=== PATIENT | male | born 1935 | race Caucasian/White ===

== ENCOUNTER 2020-10-05 12:41 | Inpatient (IN) | payer OTHER ==
[2020-10-05] MEDS ORDERED: SODIUM CHLORIDE 0.9% 500 ML INFUS.BAG IV ONE (13:25)
[2020-10-05 14:30] LABS: BASO % 0.2 % (0-2.0); EOS % 0.3 % (0-4.5); HEMATOCRIT 36.1 % (35.4-49); HEMOGLOBIN 11.6 GM/dL (11.7-16.9); LYMPH % 8.7 % (8-40); MCH 28.4 pg (25.7-33.7); MCHC 32.1 g/dl (32.0-35.9); MEAN CELL VOLUME 88.6 fl (80-96); MEAN PLT VOLUME 9.2 fl (7.5-11.1); MONO % 5.8 % (3.8-10.2); PLATELET COUNT 345 10^3/uL (134-434); RBC 4.07 M/mm3 (4.00-5.60); RDW 14.7 % (11.9-15.9); WHITE BLOOD COUNT 18.3 K/mm3 (4.0-10.0)
[2020-10-05 14:40] LABS: INR 1.42 (0.83-1.09)
[2020-10-05 14:43] LABS: ACTIVATED PTT 27.1 SECONDS (25.2-36.5)
[2020-10-05 14:51] LABS: CHLORIDE 119 mmol/L (98-107); SODIUM 152 mmol/L (136-145)
[2020-10-05 14:53] LABS: CALCIUM 9.5 mg/dL (8.5-10.1)
[2020-10-05 14:54] LABS: ANION GAP 7 MMOL/L (8-16); BLOOD UREA NITROGEN 54.8 mg/dL (7-18); CO2 27 mmol/L (21-32); GLUCOSE,RANDOM 227 mg/dL (74-106)
[2020-10-05 14:57] LABS: CREATININE 1.8 mg/dL (0.55-1.3); SGOT/AST 23 U/L (15-37); SGPT/ALT 38 U/L (13-61)
[2020-10-05 14:58] LABS: BILIRUBIN,TOTAL 0.4 mg/dL (0.2-1); TOT PROT 6.8 g/dl (6.4-8.2)
[2020-10-05 14:59] LABS: ALK PHOS 102 U/L (45-117)
[2020-10-05] MEDS ORDERED: PIPERACILLIN/TAZOB 3.375 GM 3.375 GM in DEXTROSE 5%-WATER - 50 ML IVPB ONE (14:59)
[2020-10-05] MEDS ORDERED: VANCOMYCIN 1 GM in D5W (PRE-DOCKED) 1,000 MG/250 ML IVPB ONE (14:59)
[2020-10-05] MEDS ORDERED: SODIUM CHLORIDE 0.45% 1,000 ML IV SCH (15:00)
[2020-10-05 15:05] LABS: LACTIC ACID 3.7 mmol/L (0.4-2.0)
[2020-10-05] MEDS ORDERED: PIPERACILLIN/TAZOB 3.375 GM 3.375 GM/50 ML BAG IVPB ONE (15:18)
[2020-10-05] MEDS ORDERED: VANCOMYCIN 1 GRAM (PRE-DOCKED) 1,000 MG/250 ML BAG IVPB ONE (15:18)
[2020-10-05 15:35] LABS: EPI CELLS 23 /uL (0-25.1); HYALINE CASTS 8 /uL (0-3.1); URINE APPEARANCE CLOUDY; URINE BACTERIA 4 /uL (0-1359); URINE BILIRUBIN NEGATIVE (NEGATIVE); URINE COLOR YELLOW; URINE GLUCOSE (UA) NEGATIVE (NEGATIVE); URINE KETONE NEGATIVE (NEGATIVE); URINE LEUK ESTERASE NEGATIVE (NEGATIVE); URINE NITRITE NEGATIVE (NEGATIVE); URINE PROTEIN 1+ (NEGATIVE); URINE RBC 14 /uL (0-23.9); URINE WBC 16 /uL (0-25.8)
[2020-10-05] MEDS ORDERED: ACETAMINOPHEN 325 MG TABLET (FP) PO PRN (15:52)
[2020-10-05] MEDS ORDERED: POLYETHYLENE GLYCOL (HEALTHYLAX) 3350 17 GM PACKET PO PRN (15:52)
[2020-10-05] MEDS: SODIUM CHLORIDE 1,000 ML IV SCH (16:32)
[2020-10-05 20:02] LABS: LACTIC ACID 3.4 mmol/L (0.4-2.0)
[2020-10-05] MEDS ORDERED: ROSUVASTATIN CA 10 MG TABLET (FP) PO SCH (22:00)
[2020-10-05] MEDS ORDERED: traZODone HCL 50 MG TABLET (FP) PO SCH (22:00)
[2020-10-06 06:27] LABS: BASO % 0.8 % (0-2.0); EOS % 0.6 % (0-4.5); HEMATOCRIT 31.8 % (35.4-49); HEMOGLOBIN 10.3 GM/dL (11.7-16.9); LYMPH % 7.5 % (8-40); MCH 28.8 pg (25.7-33.7); MCHC 32.4 g/dl (32.0-35.9); MEAN CELL VOLUME 88.9 fl (80-96); MEAN PLT VOLUME 8.9 fl (7.5-11.1); NEUT % 85.1 % (42.8-82.8); PLATELET COUNT 275 10^3/uL (134-434); RBC 3.57 M/mm3 (4.00-5.60); RDW 14.6 % (11.9-15.9); WHITE BLOOD COUNT 16.9 K/mm3 (4.0-10.0)
[2020-10-06 06:55] LABS: CALCIUM 8.5 mg/dL (8.5-10.1)
[2020-10-06 06:56] LABS: ALBUMIN 1.7 g/dl (3.4-5.0); BLOOD UREA NITROGEN 46.6 mg/dL (7-18)
[2020-10-06 06:59] LABS: CREATININE 1.6 mg/dL (0.55-1.3)
[2020-10-06 07:01] LABS: BILIRUBIN,TOTAL 0.4 mg/dL (0.2-1); TOT PROT 5.6 g/dl (6.4-8.2)
[2020-10-06] MEDS: HEPARIN NA (PORCINE) 5,000 UNITS/ML 1ML VIAL SQ SCH ×3 (07:18→22:46)
[2020-10-06] MEDS: SODIUM CHLORIDE 1,000 ML IV SCH (09:18)
[2020-10-06] MEDS ORDERED: SERTRALINE HCL 25 MG TABLET (FP) PO SCH (10:00)
[2020-10-06] MEDS ORDERED: PANTOPRAZOLE 40 MG TABLET PO SCH (10:00)
[2020-10-06] MEDS ORDERED: DONEPEZIL HCL 5 MG TABLET (FP) PO SCH (10:00)
[2020-10-06] MEDS ORDERED: PIPERACILLIN/TAZOB 3.375 GM 3.375 GM in DEXTROSE 5%-WATER - 50 ML IVPB SCH (10:00)
[2020-10-06] MEDS ORDERED: VANCOMYCIN 1 GRAM (PRE-DOCKED) 1,000 MG/250 ML BAG IVPB SCH (10:00)
[2020-10-06] MEDS ORDERED: VANCOMYCIN 1 GRAM (PRE-DOCKED) 1,000 MG/250 ML BAG IVPB ONE (10:45)
[2020-10-06] MEDS ORDERED: HEPARIN NA (PORCINE) 5,000 UNITS/ML 1ML VIAL ONE (10:45)
[2020-10-06] MEDS ORDERED: PIPERACILLIN/TAZOB 3.375 GM 3.375 GM/50 ML BAG IVPB ONE ×2 (10:46→12:17)
[2020-10-06 11:35] LABS: URINE CRYSTALS MODERATE /hpf
[2020-10-06] MEDS ORDERED: LIDOCAINE HCL 2% (20ML MULTI-DOSE VIAL) ONE (16:30)
[2020-10-06] MEDS ORDERED: MIDAZOLAM HCL 2 MG/2 ML SINGLE DOSE VIAL ONE (16:35)
[2020-10-06] MEDS ORDERED: LIDOCAINE HCL 2% (50ML VIAL) INF ONE ×2 (16:39)
[2020-10-06] MEDS ORDERED: PROPOFOL 20 ML ONE (16:44)
[2020-10-06] MEDS ORDERED: BACITRACIN 50,000 UNITS VIAL TP ONE (16:50)
[2020-10-06] MEDS ORDERED: oxyCODONE HCL 5 MG TABLET PO PRN (17:39)
[2020-10-06] MEDS ORDERED: SODIUM CHLORIDE 1,000 ML IV SCH (17:58)
[2020-10-06] MEDS ORDERED: POLYETHYLENE GLYCOL (HEALTHYLAX) 3350 17 GM PACKET PO PRN (17:58)
[2020-10-06] MEDS ORDERED: ACETAMINOPHEN 325 MG TABLET (FP) PO PRN (17:58)
[2020-10-06] MEDS: PIPERACILLIN/TAZOB 3.375 GM 3.375 GM in DEXTROSE 5%-WATER - 50 ML IVPB SCH (18:25)
[2020-10-06] MEDS: traZODone HCL 50 MG TABLET (FP) PO SCH (22:47)
[2020-10-06] MEDS: ROSUVASTATIN CA 10 MG TABLET (FP) PO SCH (22:47)
[2020-10-07] MEDS ORDERED: DEXTROSE 5%-WATER - 50 ML IVPB ONE ×3 (01:37→18:50)
[2020-10-07] MEDS ORDERED: PIPERACILLIN/TAZOBACTAM 3.375 GM VIAL IVPB ONE ×3 (01:37→18:50)
[2020-10-07] MEDS: PIPERACILLIN/TAZOB 3.375 GM 3.375 GM in DEXTROSE 5%-WATER - 50 ML IVPB SCH ×3 (01:48→18:53)
[2020-10-07] MEDS: PANTOPRAZOLE 40 MG TABLET PO SCH (10:53)
[2020-10-07] MEDS: DONEPEZIL HCL 5 MG TABLET (FP) PO SCH (10:54)
[2020-10-07] MEDS: SERTRALINE HCL 25 MG TABLET (FP) PO SCH (10:54)
[2020-10-07] MEDS: HEPARIN NA (PORCINE) 5,000 UNITS/ML 1ML VIAL SQ SCH ×2 (10:55→21:23)
[2020-10-07] MEDS: VANCOMYCIN 1 GRAM (PRE-DOCKED) 1,000 MG/250 ML BAG IVPB SCH (10:55)
[2020-10-07] MEDS ORDERED: ACETAMINOPHEN 1000 MG/100 ML VIAL (NON FORMULARY) IVPB PRN (11:28)
[2020-10-07] MEDS ORDERED: DEXTROSE 5%-0.45% SALINE 1,000 ML IV SCH (11:30)
[2020-10-07 11:33] LABS: BASO % 0.2 % (0-2.0); EOS % 0.6 % (0-4.5); HEMATOCRIT 29.2 % (35.4-49); HEMOGLOBIN 9.3 GM/dL (11.7-16.9); LYMPH % 9.3 % (8-40); MCH 28.4 pg (25.7-33.7); MCHC 31.8 g/dl (32.0-35.9); MEAN CELL VOLUME 89.3 fl (80-96); MEAN PLT VOLUME 9.3 fl (7.5-11.1); MONO % 6.3 % (3.8-10.2); NEUT % 83.6 % (42.8-82.8); PLATELET COUNT 236 10^3/uL (134-434); RBC 3.27 M/mm3 (4.00-5.60); RDW 14.7 % (11.9-15.9); WHITE BLOOD COUNT 11.8 K/mm3 (4.0-10.0)
[2020-10-07 11:49] LABS: CALCIUM 8.2 mg/dL (8.5-10.1)
[2020-10-07 11:50] LABS: ALBUMIN 1.5 g/dl (3.4-5.0); BLOOD UREA NITROGEN 37.9 mg/dL (7-18)
[2020-10-07 11:54] LABS: BILIRUBIN,TOTAL 0.4 mg/dL (0.2-1); CREATININE 1.5 mg/dL (0.55-1.3)
[2020-10-07 11:55] LABS: TOT PROT 5.3 g/dl (6.4-8.2)
[2020-10-07] MEDS: LACTATED RINGERS SOLUTION 1,000 ML/1,000 ML INFUS.BAG IV SCH (16:00)
[2020-10-07] MEDS: ROSUVASTATIN CA 10 MG TABLET (FP) PO SCH (21:23)
[2020-10-07] MEDS: traZODone HCL 50 MG TABLET (FP) PO SCH (21:23)
[2020-10-08] MEDS ORDERED: PIPERACILLIN/TAZOBACTAM 3.375 GM VIAL IVPB ONE ×3 (00:49→17:16)
[2020-10-08] MEDS ORDERED: DEXTROSE 5%-WATER - 50 ML IVPB ONE ×3 (00:50→17:17)
[2020-10-08] MEDS: PIPERACILLIN/TAZOB 3.375 GM 3.375 GM in DEXTROSE 5%-WATER - 50 ML IVPB SCH ×3 (01:08→17:29)
[2020-10-08] MEDS: LACTATED RINGERS SOLUTION 1,000 ML/1,000 ML INFUS.BAG IV SCH ×2 (04:43→17:16)
[2020-10-08] MEDS: DONEPEZIL HCL 5 MG TABLET (FP) PO SCH (09:26)
[2020-10-08] MEDS: PANTOPRAZOLE 40 MG TABLET PO SCH (09:27)
[2020-10-08] MEDS: SERTRALINE HCL 25 MG TABLET (FP) PO SCH (09:28)
[2020-10-08] MEDS: HEPARIN NA (PORCINE) 5,000 UNITS/ML 1ML VIAL SQ SCH ×2 (09:30→22:02)
[2020-10-08] MEDS: VANCOMYCIN 1 GRAM (PRE-DOCKED) 1,000 MG/250 ML BAG IVPB SCH (11:45)
[2020-10-08 14:38] VITALS: BMI 26.8
[2020-10-08] MEDS: ROSUVASTATIN CA 10 MG TABLET (FP) PO SCH (22:02)
[2020-10-09] MEDS ORDERED: PIPERACILLIN/TAZOBACTAM 3.375 GM VIAL IVPB ONE ×3 (01:08→17:54)
[2020-10-09] MEDS ORDERED: DEXTROSE 5%-WATER - 50 ML IVPB ONE ×3 (01:08→17:54)
[2020-10-09] MEDS: PIPERACILLIN/TAZOB 3.375 GM 3.375 GM in DEXTROSE 5%-WATER - 50 ML IVPB SCH ×3 (01:26→17:57)
[2020-10-09 09:10] LABS: BASO % 0.3 % (0-2.0); EOS % 2.2 % (0-4.5); HEMATOCRIT 30.4 % (35.4-49); HEMOGLOBIN 9.8 GM/dL (11.7-16.9); LYMPH % 11.5 % (8-40); MCHC 32.1 g/dl (32.0-35.9); MEAN CELL VOLUME 90.3 fl (80-96); MEAN PLT VOLUME 9.4 fl (7.5-11.1); MONO % 6.1 % (3.8-10.2); NEUT % 79.9 % (42.8-82.8); PLATELET COUNT 251 10^3/uL (134-434); RBC 3.37 M/mm3 (4.00-5.60); RDW 14.6 % (11.9-15.9); WHITE BLOOD COUNT 8.9 K/mm3 (4.0-10.0)
[2020-10-09 09:32] LABS: BLOOD UREA NITROGEN 22.8 mg/dL (7-18)
[2020-10-09 09:33] LABS: ALBUMIN 1.5 g/dl (3.4-5.0)
[2020-10-09 09:35] LABS: CREATININE 1.5 mg/dL (0.55-1.3)
[2020-10-09 09:37] LABS: BILIRUBIN,TOTAL 0.4 mg/dL (0.2-1); TOT PROT 5.3 g/dl (6.4-8.2)
[2020-10-09] MEDS ORDERED: PT OWN MED DRAWER 7, Y5N ONE (10:09)
[2020-10-09] MEDS: DONEPEZIL HCL 5 MG TABLET (FP) PO SCH (10:15)
[2020-10-09] MEDS: PANTOPRAZOLE 40 MG TABLET PO SCH (10:15)
[2020-10-09] MEDS: HEPARIN NA (PORCINE) 5,000 UNITS/ML 1ML VIAL SQ SCH ×2 (10:15→21:23)
[2020-10-09] MEDS: SERTRALINE HCL 25 MG TABLET (FP) PO SCH (10:15)
[2020-10-09] MEDS: TAMSULOSIN HCL 0.4 MG CAP PO SCH (17:57)
[2020-10-09] MEDS: ROSUVASTATIN CA 10 MG TABLET (FP) PO SCH (21:23)
[2020-10-10] MEDS ORDERED: PIPERACILLIN/TAZOBACTAM 3.375 GM VIAL IVPB ONE ×2 (01:28→09:41)
[2020-10-10] MEDS ORDERED: DEXTROSE 5%-WATER - 50 ML IVPB ONE ×2 (01:29→09:41)
[2020-10-10] MEDS: LACTATED RINGERS SOLUTION 1,000 ML/1,000 ML INFUS.BAG IV SCH ×2 (01:38→17:58)
[2020-10-10] MEDS: PIPERACILLIN/TAZOB 3.375 GM 3.375 GM in DEXTROSE 5%-WATER - 50 ML IVPB SCH ×2 (01:39→09:45)
[2020-10-10] MEDS: TAMSULOSIN HCL 0.4 MG CAP PO SCH (08:21)
[2020-10-10 09:05] LABS: BASO % 0.2 % (0-2.0); HEMATOCRIT 27.7 % (35.4-49); HEMOGLOBIN 9.1 GM/dL (11.7-16.9); LYMPH % 13.9 % (8-40); MCH 29.2 pg (25.7-33.7); MEAN CELL VOLUME 88.5 fl (80-96); MEAN PLT VOLUME 8.6 fl (7.5-11.1); MONO % 6.2 % (3.8-10.2); NEUT % 77.7 % (42.8-82.8); PLATELET COUNT 207 10^3/uL (134-434); RBC 3.13 M/mm3 (4.00-5.60); WHITE BLOOD COUNT 8.4 K/mm3 (4.0-10.0)
[2020-10-10 09:24] LABS: CALCIUM 7.9 mg/dL (8.5-10.1)
[2020-10-10 09:25] LABS: ALBUMIN 1.5 g/dl (3.4-5.0); BLOOD UREA NITROGEN 15.5 mg/dL (7-18)
[2020-10-10 09:28] LABS: CREATININE 1.3 mg/dL (0.55-1.3)
[2020-10-10 09:30] LABS: BILIRUBIN,TOTAL 0.4 mg/dL (0.2-1); TOT PROT 5.1 g/dl (6.4-8.2)
[2020-10-10] MEDS: PANTOPRAZOLE 40 MG TABLET PO SCH (09:44)
[2020-10-10] MEDS: DONEPEZIL HCL 5 MG TABLET (FP) PO SCH (09:44)
[2020-10-10] MEDS: HEPARIN NA (PORCINE) 5,000 UNITS/ML 1ML VIAL SQ SCH ×2 (09:44→21:49)
[2020-10-10] MEDS: SERTRALINE HCL 25 MG TABLET (FP) PO SCH (09:45)
[2020-10-10] MEDS ORDERED: POTASSIUM CHLORIDE ORAL LIQUID 20 MEQ/15 ML PO ONE (12:15)
[2020-10-10] MEDS ORDERED: POTASSIUM CHLORIDE TABS 20 MEQ TABLET.ER (FP) PO ONE (17:05)
[2020-10-10] MEDS: AMPICILLIN NA/SULBACTAM NA 3 GM in SODIUM CHLORIDE 100 ML IVPB SCH (17:59)
[2020-10-10] MEDS: ROSUVASTATIN CA 10 MG TABLET (FP) PO SCH (21:49)
[2020-10-11] MEDS: LACTATED RINGERS SOLUTION 1,000 ML/1,000 ML INFUS.BAG IV SCH ×2 (01:58→15:14)
[2020-10-11] MEDS: AMPICILLIN NA/SULBACTAM NA 3 GM in SODIUM CHLORIDE 100 ML IVPB SCH ×3 (01:58→17:13)
[2020-10-11] MEDS ORDERED: PT OWN MED DRAWER 7, Y5N ONE ×3 (06:38→17:12)
[2020-10-11 08:54] LABS: BASO % 0.1 % (0-2.0); EOS % 1.4 % (0-4.5); HEMATOCRIT 29.2 % (35.4-49); HEMOGLOBIN 9.6 GM/dL (11.7-16.9); LYMPH % 12.5 % (8-40); MCH 28.9 pg (25.7-33.7); MCHC 32.8 g/dl (32.0-35.9); MEAN CELL VOLUME 88.2 fl (80-96); MONO % 5.3 % (3.8-10.2); NEUT % 80.7 % (42.8-82.8); PLATELET COUNT 194 10^3/uL (134-434); RBC 3.31 M/mm3 (4.00-5.60); RDW 14.3 % (11.9-15.9); WHITE BLOOD COUNT 7.6 K/mm3 (4.0-10.0)
[2020-10-11 09:27] LABS: ALBUMIN 1.5 g/dl (3.4-5.0); BLOOD UREA NITROGEN 13.5 mg/dL (7-18); CALCIUM 8.1 mg/dL (8.5-10.1)
[2020-10-11 09:31] LABS: CREATININE 1.2 mg/dL (0.55-1.3)
[2020-10-11 09:32] LABS: BILIRUBIN,TOTAL 0.4 mg/dL (0.2-1); TOT PROT 5.3 g/dl (6.4-8.2)
[2020-10-11] MEDS: DONEPEZIL HCL 5 MG TABLET (FP) PO SCH (10:25)
[2020-10-11] MEDS: SERTRALINE HCL 25 MG TABLET (FP) PO SCH (10:25)
[2020-10-11] MEDS: TAMSULOSIN HCL 0.4 MG CAP PO SCH (10:25)
[2020-10-11] MEDS: HEPARIN NA (PORCINE) 5,000 UNITS/ML 1ML VIAL SQ SCH ×2 (10:25→21:35)
[2020-10-11] MEDS: PANTOPRAZOLE 40 MG TABLET PO SCH (10:25)
[2020-10-11] MEDS: INSULIN SLIDING SCALE (NOVOLOG) 1 VIAL SQ SCH (17:10)
[2020-10-11] MEDS: ROSUVASTATIN CA 10 MG TABLET (FP) PO SCH (21:35)
[2020-10-11] MEDS ORDERED: INSULIN (LEVEMIR) 100 UNITS/ML UNITS SQ SCH (22:00)
[2020-10-12] MEDS ORDERED: PT OWN MED DRAWER 7, Y5N ONE (01:06)
[2020-10-12] MEDS: AMPICILLIN NA/SULBACTAM NA 3 GM in SODIUM CHLORIDE 100 ML IVPB SCH ×3 (01:08→17:37)
[2020-10-12] MEDS: INSULIN SLIDING SCALE (NOVOLOG) 1 VIAL SQ SCH ×3 (06:06→17:07)
[2020-10-12] MEDS: TAMSULOSIN HCL 0.4 MG CAP PO SCH (08:24)
[2020-10-12] MEDS: SERTRALINE HCL 25 MG TABLET (FP) PO SCH (09:34)
[2020-10-12] MEDS: PANTOPRAZOLE 40 MG TABLET PO SCH (09:34)
[2020-10-12] MEDS: DONEPEZIL HCL 5 MG TABLET (FP) PO SCH (09:34)
[2020-10-12] MEDS ORDERED: AMPICILLIN NA/SULBACTAM NA 3 GM VIAL ONE ×2 (09:40→17:35)
[2020-10-12] MEDS ORDERED: SODIUM CHLORIDE 100 ML IVPB ONE ×2 (09:40→17:35)
[2020-10-12] MEDS: HEPARIN NA (PORCINE) 5,000 UNITS/ML 1ML VIAL SQ SCH ×2 (10:01→21:32)
[2020-10-12] MEDS ORDERED: INSULIN (NOVOLOG) ASPART 100 UNITS/ML 10ML VIAL ONE (11:24)
[2020-10-12] MEDS ORDERED: LIDOCAINE HCL 1%, 10 MG/ML (20ML VIAL) ONE (13:44)
[2020-10-12] MEDS ORDERED: HEPARIN NA (PORCINE) 5,000 UNITS/ML 1ML VIAL ONE (13:44)
[2020-10-12] MEDS ORDERED: PROPOFOL 20 ML ONE (13:49)
[2020-10-12] MEDS ORDERED: ceFAZolin SODIUM 1 GM VIAL IVPB ONE (14:10)
[2020-10-12] MEDS ORDERED: LIDOCAINE HCL 1%, 10 MG/ML (50 mL VIAL) INF ONE ×2 (14:23)
[2020-10-12] MEDS ORDERED: POLYETHYLENE GLYCOL (HEALTHYLAX) 3350 17 GM PACKET PO PRN (14:59)
[2020-10-12] MEDS ORDERED: ACETAMINOPHEN 325 MG TABLET (FP) PO PRN (14:59)
[2020-10-12] MEDS: LACTATED RINGERS SOLUTION 1,000 ML/1,000 ML INFUS.BAG IV SCH (17:37)
[2020-10-12] MEDS: ROSUVASTATIN CA 10 MG TABLET (FP) PO SCH (21:32)
[2020-10-12] MEDS ORDERED: INSULIN (LEVEMIR) 100 UNITS/ML UNITS SQ SCH (22:00)
[2020-10-13] MEDS ORDERED: AMPICILLIN NA/SULBACTAM NA 3 GM VIAL ONE ×3 (01:48→17:28)
[2020-10-13] MEDS ORDERED: SODIUM CHLORIDE 100 ML IVPB ONE ×3 (01:49→17:28)
[2020-10-13] MEDS: AMPICILLIN NA/SULBACTAM NA 3 GM in SODIUM CHLORIDE 100 ML IVPB SCH ×3 (01:51→17:37)
[2020-10-13] MEDS: LACTATED RINGERS SOLUTION 1,000 ML/1,000 ML INFUS.BAG IV SCH ×2 (06:11→16:56)
[2020-10-13] MEDS: INSULIN SLIDING SCALE (NOVOLOG) 1 VIAL SQ SCH ×3 (06:12→16:57)
[2020-10-13] MEDS ORDERED: AMINO ACIDS/PROTEIN HYDROLYS 30 ML LIQUID.PKT PO SCH (08:00)
[2020-10-13] MEDS: TAMSULOSIN HCL 0.4 MG CAP PO SCH (08:56)
[2020-10-13] MEDS: AMINO ACIDS/PROTEIN HYDROLYS 30 ML LIQUID.PKT PO SCH (08:56)
[2020-10-13] MEDS: SERTRALINE HCL 25 MG TABLET (FP) PO SCH (09:55)
[2020-10-13] MEDS: PANTOPRAZOLE 40 MG TABLET PO SCH (09:55)
[2020-10-13] MEDS: VITAMIN B COMP W-C 1 EA TABLET (NEPHRO-VITE) PO SCH (09:55)
[2020-10-13] MEDS: DONEPEZIL HCL 5 MG TABLET (FP) PO SCH (09:55)
[2020-10-13] MEDS: HEPARIN NA (PORCINE) 5,000 UNITS/ML 1ML VIAL SQ SCH ×2 (09:55→21:02)
[2020-10-13] MEDS ORDERED: VITAMIN B COMP W-C 1 EA TABLET (NEPHRO-VITE) PO SCH (10:00)
[2020-10-13] MEDS ORDERED: INSULIN (NOVOLOG) ASPART 100 UNITS/ML 10ML VIAL ONE (20:35)
[2020-10-13] MEDS: INSULIN (LEVEMIR) 100 UNITS/ML UNITS SQ SCH (21:02)
[2020-10-13] MEDS: ROSUVASTATIN CA 10 MG TABLET (FP) PO SCH (21:02)
[2020-10-14] MEDS ORDERED: AMPICILLIN NA/SULBACTAM NA 3 GM VIAL ONE ×3 (01:12→16:58)
[2020-10-14] MEDS ORDERED: SODIUM CHLORIDE 100 ML IVPB ONE ×3 (01:13→16:58)
[2020-10-14] MEDS: LACTATED RINGERS SOLUTION 1,000 ML/1,000 ML INFUS.BAG IV SCH ×2 (01:17→16:39)
[2020-10-14] MEDS: AMPICILLIN NA/SULBACTAM NA 3 GM in SODIUM CHLORIDE 100 ML IVPB SCH ×3 (01:17→17:04)
[2020-10-14] MEDS: INSULIN SLIDING SCALE (NOVOLOG) 1 VIAL SQ SCH ×3 (06:25→16:40)
[2020-10-14] MEDS ORDERED: INSULIN (NOVOLOG) ASPART 100 UNITS/ML 10ML VIAL ONE ×2 (06:59→16:34)
[2020-10-14] MEDS: AMINO ACIDS/PROTEIN HYDROLYS 30 ML LIQUID.PKT PO SCH (08:47)
[2020-10-14] MEDS: TAMSULOSIN HCL 0.4 MG CAP PO SCH (08:47)
[2020-10-14] MEDS: PANTOPRAZOLE 40 MG TABLET PO SCH (11:07)
[2020-10-14] MEDS: HEPARIN NA (PORCINE) 5,000 UNITS/ML 1ML VIAL SQ SCH ×2 (11:07→21:36)
[2020-10-14] MEDS: SERTRALINE HCL 25 MG TABLET (FP) PO SCH (11:08)
[2020-10-14] MEDS: DONEPEZIL HCL 5 MG TABLET (FP) PO SCH (11:08)
[2020-10-14] MEDS: VITAMIN B COMP W-C 1 EA TABLET (NEPHRO-VITE) PO SCH (11:08)
[2020-10-14] MEDS: INSULIN (LEVEMIR) 100 UNITS/ML UNITS SQ SCH (21:36)
[2020-10-14] MEDS: ROSUVASTATIN CA 10 MG TABLET (FP) PO SCH (21:36)
[2020-10-15] MEDS ORDERED: AMPICILLIN NA/SULBACTAM NA 3 GM VIAL ONE ×3 (01:11→17:17)
[2020-10-15] MEDS ORDERED: SODIUM CHLORIDE 100 ML IVPB ONE ×3 (01:12→17:18)
[2020-10-15] MEDS: AMPICILLIN NA/SULBACTAM NA 3 GM in SODIUM CHLORIDE 100 ML IVPB SCH ×3 (01:20→17:24)
[2020-10-15] MEDS: INSULIN SLIDING SCALE (NOVOLOG) 1 VIAL SQ SCH ×3 (06:11→16:41)
[2020-10-15] MEDS: LACTATED RINGERS SOLUTION 1,000 ML/1,000 ML INFUS.BAG IV SCH (06:28)
[2020-10-15] MEDS: AMINO ACIDS/PROTEIN HYDROLYS 30 ML LIQUID.PKT PO SCH (08:22)
[2020-10-15 08:57] LABS: BASO % 0.1 % (0-2.0); EOS % 2.2 % (0-4.5); HEMATOCRIT 27.4 % (35.4-49); HEMOGLOBIN 9.1 GM/dL (11.7-16.9); LYMPH % 15.3 % (8-40); MCH 29.2 pg (25.7-33.7); MCHC 33.2 g/dl (32.0-35.9); MEAN PLT VOLUME 8.9 fl (7.5-11.1); MONO % 8.1 % (3.8-10.2); NEUT % 74.3 % (42.8-82.8); PLATELET COUNT 184 10^3/uL (134-434); RBC 3.12 M/mm3 (4.00-5.60); RDW 14.6 % (11.9-15.9); WHITE BLOOD COUNT 7.2 K/mm3 (4.0-10.0)
[2020-10-15 09:16] LABS: CALCIUM 7.8 mg/dL (8.5-10.1)
[2020-10-15 09:17] LABS: ALBUMIN 1.5 g/dl (3.4-5.0)
[2020-10-15 09:21] LABS: BILIRUBIN,TOTAL 0.4 mg/dL (0.2-1); TOT PROT 4.9 g/dl (6.4-8.2)
[2020-10-15] MEDS: HEPARIN NA (PORCINE) 5,000 UNITS/ML 1ML VIAL SQ SCH ×2 (09:24→21:01)
[2020-10-15] MEDS: PANTOPRAZOLE 40 MG TABLET PO SCH (09:24)
[2020-10-15] MEDS: VITAMIN B COMP W-C 1 EA TABLET (NEPHRO-VITE) PO SCH (09:24)
[2020-10-15] MEDS: TAMSULOSIN HCL 0.4 MG CAP PO SCH (09:24)
[2020-10-15] MEDS: SERTRALINE HCL 25 MG TABLET (FP) PO SCH (09:24)
[2020-10-15] MEDS: DONEPEZIL HCL 5 MG TABLET (FP) PO SCH (09:24)
[2020-10-15] MEDS ORDERED: POTASSIUM CHLORIDE ORAL LIQUID 20 MEQ/15 ML PO ONE (11:13)
[2020-10-15] MEDS: INSULIN (LEVEMIR) 100 UNITS/ML UNITS SQ SCH (21:01)
[2020-10-15] MEDS: ROSUVASTATIN CA 10 MG TABLET (FP) PO SCH (21:01)
[2020-10-16] MEDS ORDERED: AMPICILLIN NA/SULBACTAM NA 3 GM VIAL ONE ×3 (01:26→18:32)
[2020-10-16] MEDS ORDERED: SODIUM CHLORIDE 100 ML IVPB ONE ×3 (01:27→18:32)
[2020-10-16] MEDS: AMPICILLIN NA/SULBACTAM NA 3 GM in SODIUM CHLORIDE 100 ML IVPB SCH ×3 (01:29→18:33)
[2020-10-16] MEDS: INSULIN SLIDING SCALE (NOVOLOG) 1 VIAL SQ SCH ×3 (06:33→17:41)
[2020-10-16] MEDS: HEPARIN NA (PORCINE) 5,000 UNITS/ML 1ML VIAL SQ SCH ×2 (10:43→22:01)
[2020-10-16] MEDS: VITAMIN B COMP W-C 1 EA TABLET (NEPHRO-VITE) PO SCH (10:44)
[2020-10-16] MEDS: SERTRALINE HCL 25 MG TABLET (FP) PO SCH (10:45)
[2020-10-16] MEDS: PANTOPRAZOLE 40 MG TABLET PO SCH (10:45)
[2020-10-16] MEDS: DONEPEZIL HCL 5 MG TABLET (FP) PO SCH (10:45)
[2020-10-16] MEDS: AMINO ACIDS/PROTEIN HYDROLYS 30 ML LIQUID.PKT PO SCH (10:45)
[2020-10-16] MEDS: TAMSULOSIN HCL 0.4 MG CAP PO SCH (11:40)
[2020-10-16] MEDS: ROSUVASTATIN CA 10 MG TABLET (FP) PO SCH (22:01)
[2020-10-16] MEDS: INSULIN (LEVEMIR) 100 UNITS/ML UNITS SQ SCH (22:02)
[2020-10-17] MEDS ORDERED: AMPICILLIN NA/SULBACTAM NA 3 GM VIAL ONE ×3 (01:55→17:27)
[2020-10-17] MEDS: AMPICILLIN NA/SULBACTAM NA 3 GM in SODIUM CHLORIDE 100 ML IVPB SCH ×3 (01:55→17:48)
[2020-10-17] MEDS ORDERED: SODIUM CHLORIDE 100 ML IVPB ONE ×3 (01:55→17:28)
[2020-10-17] MEDS: INSULIN SLIDING SCALE (NOVOLOG) 1 VIAL SQ SCH ×3 (06:03→17:11)
[2020-10-17] MEDS: AMINO ACIDS/PROTEIN HYDROLYS 30 ML LIQUID.PKT PO SCH (08:08)
[2020-10-17] MEDS: TAMSULOSIN HCL 0.4 MG CAP PO SCH (08:08)
[2020-10-17] MEDS: VITAMIN B COMP W-C 1 EA TABLET (NEPHRO-VITE) PO SCH (10:29)
[2020-10-17] MEDS: HEPARIN NA (PORCINE) 5,000 UNITS/ML 1ML VIAL SQ SCH ×2 (10:29→21:35)
[2020-10-17] MEDS: DONEPEZIL HCL 5 MG TABLET (FP) PO SCH (10:29)
[2020-10-17] MEDS: PANTOPRAZOLE 40 MG TABLET PO SCH (10:29)
[2020-10-17] MEDS: SERTRALINE HCL 25 MG TABLET (FP) PO SCH (10:29)
[2020-10-17 11:59] LABS: BASO % 0.3 % (0-2.0); EOS % 2.4 % (0-4.5); HEMOGLOBIN 8.9 GM/dL (11.7-16.9); LYMPH % 16.9 % (8-40); MCHC 32.9 g/dl (32.0-35.9); MEAN CELL VOLUME 88.3 fl (80-96); MEAN PLT VOLUME 8.8 fl (7.5-11.1); MONO % 10.3 % (3.8-10.2); NEUT % 70.1 % (42.8-82.8); PLATELET COUNT 198 10^3/uL (134-434); RBC 3.05 M/mm3 (4.00-5.60); WHITE BLOOD COUNT 9.1 K/mm3 (4.0-10.0)
[2020-10-17 12:21] LABS: ALBUMIN 1.6 g/dl (3.4-5.0); BLOOD UREA NITROGEN 15.2 mg/dL (7-18); CALCIUM 7.9 mg/dL (8.5-10.1)
[2020-10-17 12:24] LABS: CREATININE 1.1 mg/dL (0.55-1.3)
[2020-10-17 12:26] LABS: BILIRUBIN,TOTAL 0.5 mg/dL (0.2-1); TOT PROT 5.2 g/dl (6.4-8.2)
[2020-10-17 12:38] LABS: ERYTHROCYTE SEDIMENTATION RATE 115 mm/hr (0-20)
[2020-10-17] MEDS: ROSUVASTATIN CA 10 MG TABLET (FP) PO SCH (21:35)
[2020-10-17] MEDS: INSULIN (LEVEMIR) 100 UNITS/ML UNITS SQ SCH (21:41)
[2020-10-18] MEDS ORDERED: AMPICILLIN NA/SULBACTAM NA 3 GM VIAL ONE ×3 (00:58→16:56)
[2020-10-18] MEDS ORDERED: SODIUM CHLORIDE 100 ML IVPB ONE ×3 (00:58→16:57)
[2020-10-18] MEDS: AMPICILLIN NA/SULBACTAM NA 3 GM in SODIUM CHLORIDE 100 ML IVPB SCH ×3 (01:05→16:59)
[2020-10-18] MEDS: INSULIN SLIDING SCALE (NOVOLOG) 1 VIAL SQ SCH ×3 (06:31→16:59)
[2020-10-18] MEDS: AMINO ACIDS/PROTEIN HYDROLYS 30 ML LIQUID.PKT PO SCH (08:24)
[2020-10-18] MEDS: TAMSULOSIN HCL 0.4 MG CAP PO SCH (08:24)
[2020-10-18] MEDS: DONEPEZIL HCL 5 MG TABLET (FP) PO SCH (09:29)
[2020-10-18] MEDS: HEPARIN NA (PORCINE) 5,000 UNITS/ML 1ML VIAL SQ SCH ×2 (09:29→22:32)
[2020-10-18] MEDS: VITAMIN B COMP W-C 1 EA TABLET (NEPHRO-VITE) PO SCH (09:29)
[2020-10-18] MEDS: SERTRALINE HCL 25 MG TABLET (FP) PO SCH (09:29)
[2020-10-18] MEDS: PANTOPRAZOLE 40 MG TABLET PO SCH (09:29)
[2020-10-18] MEDS: ROSUVASTATIN CA 10 MG TABLET (FP) PO SCH (22:32)
[2020-10-18] MEDS: INSULIN (LEVEMIR) 100 UNITS/ML UNITS SQ SCH (22:32)
[2020-10-19] MEDS ORDERED: SODIUM CHLORIDE 100 ML IVPB ONE ×3 (01:08→17:35)
[2020-10-19] MEDS ORDERED: AMPICILLIN NA/SULBACTAM NA 3 GM VIAL ONE ×3 (01:08→17:35)
[2020-10-19] MEDS: AMPICILLIN NA/SULBACTAM NA 3 GM in SODIUM CHLORIDE 100 ML IVPB SCH ×3 (01:17→17:55)
[2020-10-19] MEDS: INSULIN SLIDING SCALE (NOVOLOG) 1 VIAL SQ SCH ×3 (06:13→17:56)
[2020-10-19] MEDS: TAMSULOSIN HCL 0.4 MG CAP PO SCH (10:07)
[2020-10-19] MEDS: HEPARIN NA (PORCINE) 5,000 UNITS/ML 1ML VIAL SQ SCH (10:07)
[2020-10-19] MEDS: AMINO ACIDS/PROTEIN HYDROLYS 30 ML LIQUID.PKT PO SCH (10:07)
[2020-10-19] MEDS: DONEPEZIL HCL 5 MG TABLET (FP) PO SCH (10:07)
[2020-10-19] MEDS: PANTOPRAZOLE 40 MG TABLET PO SCH (10:07)
[2020-10-19] MEDS: VITAMIN B COMP W-C 1 EA TABLET (NEPHRO-VITE) PO SCH (10:07)
[2020-10-19] MEDS: SERTRALINE HCL 25 MG TABLET (FP) PO SCH (10:08)
[2020-10-19] MEDS: INSULIN (LEVEMIR) 100 UNITS/ML UNITS SQ SCH (21:31)
[2020-10-19] MEDS: ROSUVASTATIN CA 10 MG TABLET (FP) PO SCH (21:32)
[2020-10-20] MEDS ORDERED: AMPICILLIN NA/SULBACTAM NA 3 GM VIAL ONE ×3 (01:15→17:41)
[2020-10-20] MEDS ORDERED: SODIUM CHLORIDE 100 ML IVPB ONE ×3 (01:16→17:42)
[2020-10-20] MEDS: AMPICILLIN NA/SULBACTAM NA 3 GM in SODIUM CHLORIDE 100 ML IVPB SCH ×3 (01:28→18:02)
[2020-10-20] MEDS: INSULIN SLIDING SCALE (NOVOLOG) 1 VIAL SQ SCH ×3 (06:24→17:46)
[2020-10-20] MEDS: TAMSULOSIN HCL 0.4 MG CAP PO SCH (10:31)
[2020-10-20] MEDS: DONEPEZIL HCL 5 MG TABLET (FP) PO SCH (10:31)
[2020-10-20] MEDS: PANTOPRAZOLE 40 MG TABLET PO SCH (10:31)
[2020-10-20] MEDS: AMINO ACIDS/PROTEIN HYDROLYS 30 ML LIQUID.PKT PO SCH (10:31)
[2020-10-20] MEDS: VITAMIN B COMP W-C 1 EA TABLET (NEPHRO-VITE) PO SCH (10:31)
[2020-10-20] MEDS: SERTRALINE HCL 25 MG TABLET (FP) PO SCH (10:31)
[2020-10-20] MEDS: ROSUVASTATIN CA 10 MG TABLET (FP) PO SCH (21:36)
[2020-10-20] MEDS: INSULIN (LEVEMIR) 100 UNITS/ML UNITS SQ SCH (21:37)
[2020-10-21] MEDS ORDERED: AMPICILLIN NA/SULBACTAM NA 3 GM VIAL ONE ×4 (01:40→18:29)
[2020-10-21] MEDS ORDERED: SODIUM CHLORIDE 100 ML IVPB ONE ×3 (01:40→18:30)
[2020-10-21] MEDS: AMPICILLIN NA/SULBACTAM NA 3 GM in SODIUM CHLORIDE 100 ML IVPB SCH ×3 (02:09→18:55)
[2020-10-21] MEDS: INSULIN SLIDING SCALE (NOVOLOG) 1 VIAL SQ SCH ×3 (06:31→17:10)
[2020-10-21] MEDS: PANTOPRAZOLE 40 MG TABLET PO SCH (10:29)
[2020-10-21] MEDS: SERTRALINE HCL 25 MG TABLET (FP) PO SCH (10:29)
[2020-10-21] MEDS: TAMSULOSIN HCL 0.4 MG CAP PO SCH (10:29)
[2020-10-21] MEDS: VITAMIN B COMP W-C 1 EA TABLET (NEPHRO-VITE) PO SCH (10:29)
[2020-10-21] MEDS: AMINO ACIDS/PROTEIN HYDROLYS 30 ML LIQUID.PKT PO SCH (10:29)
[2020-10-21] MEDS: DONEPEZIL HCL 5 MG TABLET (FP) PO SCH (10:29)
[2020-10-21] MEDS: ROSUVASTATIN CA 10 MG TABLET (FP) PO SCH (21:46)
[2020-10-22] MEDS ORDERED: AMPICILLIN NA/SULBACTAM NA 3 GM VIAL ONE ×3 (01:03→17:57)
[2020-10-22] MEDS ORDERED: SODIUM CHLORIDE 100 ML IVPB ONE ×3 (01:03→17:57)
[2020-10-22] MEDS: AMPICILLIN NA/SULBACTAM NA 3 GM in SODIUM CHLORIDE 100 ML IVPB SCH ×3 (01:05→18:01)
[2020-10-22] MEDS: INSULIN SLIDING SCALE (NOVOLOG) 1 VIAL SQ SCH ×3 (06:05→16:29)
[2020-10-22] MEDS: AMINO ACIDS/PROTEIN HYDROLYS 30 ML LIQUID.PKT PO SCH (08:21)
[2020-10-22] MEDS: TAMSULOSIN HCL 0.4 MG CAP PO SCH (08:21)
[2020-10-22 08:23] LABS: BASO % 0.2 % (0-2.0); EOS % 2.1 % (0-4.5); HEMATOCRIT 29.3 % (35.4-49); HEMOGLOBIN 9.7 GM/dL (11.7-16.9); LYMPH % 20.1 % (8-40); MCH 29.5 pg (25.7-33.7); MCHC 33.3 g/dl (32.0-35.9); MEAN CELL VOLUME 88.8 fl (80-96); MEAN PLT VOLUME 8.4 fl (7.5-11.1); MONO % 10.3 % (3.8-10.2); NEUT % 67.3 % (42.8-82.8); PLATELET COUNT 215 10^3/uL (134-434); RDW 15.6 % (11.9-15.9); WHITE BLOOD COUNT 7.7 K/mm3 (4.0-10.0)
[2020-10-22 08:45] LABS: CALCIUM 7.6 mg/dL (8.5-10.1)
[2020-10-22 08:46] LABS: ALBUMIN 1.7 g/dl (3.4-5.0); BLOOD UREA NITROGEN 15.7 mg/dL (7-18)
[2020-10-22 08:49] LABS: CREATININE 1.1 mg/dL (0.55-1.3)
[2020-10-22 08:50] LABS: BILIRUBIN,TOTAL 0.5 mg/dL (0.2-1); TOT PROT 5.6 g/dl (6.4-8.2)
[2020-10-22] MEDS: PANTOPRAZOLE 40 MG TABLET PO SCH (09:01)
[2020-10-22] MEDS: SERTRALINE HCL 25 MG TABLET (FP) PO SCH (09:01)
[2020-10-22] MEDS: DONEPEZIL HCL 5 MG TABLET (FP) PO SCH (09:02)
[2020-10-22] MEDS: VITAMIN B COMP W-C 1 EA TABLET (NEPHRO-VITE) PO SCH (09:02)
[2020-10-22] MEDS: ENALAPRIL MALEATE 10 MG TABLET PO SCH (13:51)
[2020-10-22] MEDS: ROSUVASTATIN CA 10 MG TABLET (FP) PO SCH (21:11)
[2020-10-23] MEDS ORDERED: SODIUM CHLORIDE 100 ML IVPB ONE ×3 (01:52→17:30)
[2020-10-23] MEDS ORDERED: AMPICILLIN NA/SULBACTAM NA 3 GM VIAL ONE ×3 (01:52→17:30)
[2020-10-23] MEDS: AMPICILLIN NA/SULBACTAM NA 3 GM in SODIUM CHLORIDE 100 ML IVPB SCH ×3 (02:04→17:32)
[2020-10-23] MEDS: INSULIN SLIDING SCALE (NOVOLOG) 1 VIAL SQ SCH ×3 (06:28→16:30)
[2020-10-23] MEDS: AMINO ACIDS/PROTEIN HYDROLYS 30 ML LIQUID.PKT PO SCH (08:51)
[2020-10-23] MEDS: TAMSULOSIN HCL 0.4 MG CAP PO SCH (08:51)
[2020-10-23] MEDS: PANTOPRAZOLE 40 MG TABLET PO SCH (09:01)
[2020-10-23] MEDS: DONEPEZIL HCL 5 MG TABLET (FP) PO SCH (09:01)
[2020-10-23] MEDS: ENALAPRIL MALEATE 10 MG TABLET PO SCH (09:01)
[2020-10-23] MEDS: SERTRALINE HCL 25 MG TABLET (FP) PO SCH (09:01)
[2020-10-23] MEDS: VITAMIN B COMP W-C 1 EA TABLET (NEPHRO-VITE) PO SCH (09:01)
[2020-10-23] MEDS: ROSUVASTATIN CA 10 MG TABLET (FP) PO SCH (21:17)
[2020-10-24] MEDS: AMPICILLIN NA/SULBACTAM NA 3 GM in SODIUM CHLORIDE 100 ML IVPB SCH (02:08)
[2020-10-24 05:45] VITALS: BP 145/71
[2020-10-24] MEDS: INSULIN SLIDING SCALE (NOVOLOG) 1 VIAL SQ SCH (06:22)
[2020-10-24] MEDS: DONEPEZIL HCL 5 MG TABLET (FP) PO SCH (09:20)
[2020-10-24] MEDS: TAMSULOSIN HCL 0.4 MG CAP PO SCH (09:21)
[2020-10-24] MEDS: ENALAPRIL MALEATE 10 MG TABLET PO SCH (09:21)
[2020-10-24] MEDS: SERTRALINE HCL 25 MG TABLET (FP) PO SCH (09:21)
[2020-10-24] MEDS: PANTOPRAZOLE 40 MG TABLET PO SCH (09:21)
[2020-10-24] MEDS: AMINO ACIDS/PROTEIN HYDROLYS 30 ML LIQUID.PKT PO SCH (09:21)
[2020-10-24] MEDS: VITAMIN B COMP W-C 1 EA TABLET (NEPHRO-VITE) PO SCH (09:21)
[2020-10-24 09:28] VITALS: PULSE 85
[2020-10-24 09:53] VITALS: TEMP 98.2
== END 2020-10-24 10:43 | DRG 628 ==
LOC: JER 12:41 → JERBED 13:49 → J6S 10-06 20:39
PROVIDERS: ADMIT Internal Medicine; ATTEND Internal Medicine
PROC: 0QBM0ZZ Excision of Left Tarsal, Open Approach (ICD-10-PCS; principal; 2020-10-06 15:00)
PROC: BQ1FZZZ Fluoroscopy of Left Lower Leg (ICD-10-PCS; 2020-10-12)
DX: E11.69 Type 2 diabetes mellitus with other specified complication (principal); A48.0 Gas gangrene; L03.116 Cellulitis of left lower limb; E11.52 Type 2 diabetes mellitus with diabetic peripheral angiopathy with gangrene; E87.0 Hyperosmolality and hypernatremia; L97.428 Non-pressure chronic ulcer of left heel and midfoot with other specified severity; M86.172 Other acute osteomyelitis, left ankle and foot; E11.622 Type 2 diabetes mellitus with other skin ulcer; E11.621 Type 2 diabetes mellitus with foot ulcer; F03.90 Unspecified dementia, unspecified severity, without behavioral disturbance, psychotic disturbance, mood disturbance, and anxiety; I10 Essential (primary) hypertension; E78.5 Hyperlipidemia, unspecified
CPT/HCPCS: 36415; 71045-TC-FY; 73610-TC-LT-FY; 73630-TC-LT; 76000-TC-FY; 80053; 81003; 82550; 82962; 83036; 83605; 84484; 85025; 85610; 85651; 85730; 86140; 86850; 86900; 86901; 87040; 87070; 87075; 87086; 87186; 87205; 88304-TC; 88311-TC; 93005; 93010; 94760; 99285-25; C9803; G0463-25; G0480; J1644; U0003; U0005